=== PATIENT | female | born 1970 | race Caucasian/White ===

== ENCOUNTER 2017-03-15 17:53 | Emergency (ER) | payer OTHER, BC ==
[2017-03-15 17:58] VITALS: RESP 18
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
[2017-03-15 19:26] VITALS: BP 132/97; PULSE 69; TEMP 97.8
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
[2017-03-15] MEDS ORDERED: IBUPROFEN 800 MG TAB PO STA (19:42)
[2017-03-15] MEDS ORDERED: CYCLOBENZAPRINE 10MG STARTER 3 TAB BTL PO STA (19:42)
== END 2017-03-15 19:54 | disposition home or self-care (01) ==
LOC: EC 17:53
DX: S09.90XA Unspecified injury of head, initial encounter (principal); M54.2 Cervicalgia; Z79.82 Long term (current) use of aspirin; Z79.899 Other long term (current) drug therapy; V87.7XXA Person injured in collision between other specified motor vehicles (traffic), initial encounter; Y92.410 Unspecified street and highway as the place of occurrence of the external cause
CPT/HCPCS: 70450; 72125; 99284